=== PATIENT | female | born 1970 | race Caucasian/White ===

== ENCOUNTER 2017-02-08 01:31 | Emergency (ER) | payer OTHER ==
--- NOTE | ~2017-02-08 | ER ---
PATIENT'S NAME: JOSE SAWYER [facility] AGE: 46 Y [address] ROOM: [place] [id number] LOCATION: ED ADMIT DATE: 02/08/2017 ER/Outpatient Report DISCHARGE DATE: FAMILY PHYSICIAN: PHYSICIAN, NO ATTENDING PHYSICIAN: Anuj Mahoney Admission date and time are documented in the medical record. I saw the patient at 0145 hours. CHIEF COMPLAINT: Headache. HISTORY OF PRESENT ILLNESS: This patient is a 46-year-old female who has a history of headaches. She has it quite frequently. 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 Headache started around 1645 hours this afternoon, occipital and radiating into temples bilaterally. Throbbing in nature. She has nausea plus vomiting. No recent coughs, colds, flus, fever, chills, or sweats. No chest pain or abdominal pain. No diarrhea. HOME MEDICATIONS: See attached medication list. ALLERGIES: ULTRAM, SULFA, TORADOL, AND KEFLEX. SOCIAL HISTORY: The patient smokes a half to a pack of cigarettes a day. Nondrinker. SIGNIFICANT PAST MEDICAL HISTORY: Headaches, hiatal hernia, gastroesophageal reflux, and peptic ulcer disease. OPERATIONS: Right adrenalectomy, open reduction and internal fixation of clavicle fracture. REVIEW OF SYSTEMS: All systems reviewed by me are negative with the exception of those discussed in the history of present illness. PHYSICAL EXAMINATION: VITAL SIGNS: Temperature 98.8, pulse 97, respirations 18, blood pressure 122/80, and O2 sat on room air is 97% [place] Coma Scale is 15. HEAD: Normocephalic. EYES: Pupils dilated, but reactive bilaterally. PATIENT'S NAME: JOSE SAWYER [facility] AGE: 46 Y [address] ROOM: [place] [address] LOCATION: ED ADMIT DATE: 02/08/2017 ER/Outpatient Report DISCHARGE DATE: FAMILY PHYSICIAN: PHYSICIAN, NO ATTENDING PHYSICIAN: Anuj Mahoney EARS: Clear TMs bilaterally. NOSE AND THROAT: Clear. The patient smells of tobacco. NECK: Negative. LUNGS: Clear. HEART: Regular. ABDOMEN: Negative. EXTREMITIES: No peripheral edema or cyanosis. NEURO: Intact. IMPRESSION: Headache. PLAN: The patient was given 1 L of normal saline IV in the emergency room. The patient was given Benadryl 50 mg IV in the emergency room followed 10 minutes later by Compazine 10 mg and Nubain 5 mg IV. The patient then dismissed home, rest, fluids, diet as tolerated, continue present home medications and care. Follow up with personal physician as needed. MD BROOKE PHILLIPS/carlyle /[id number] d: 02/08/17228 t: 02/08/17 1809, OUTPATIENT REPORT
== END 2017-02-08 03:30 | disposition disaster alternative care site (69) ==
LOC: GMED 01:31
DX: R51 Headache (principal); K21.9 Gastro-esophageal reflux disease without esophagitis; F17.210 Nicotine dependence, cigarettes, uncomplicated; Z90.89 Acquired absence of other organs; Z79.899 Other long term (current) drug therapy; Z88.1 Allergy status to other antibiotic agents; Z88.2 Allergy status to sulfonamides; Z88.5 Allergy status to narcotic agent; Z88.6 Allergy status to analgesic agent; Z87.11 Personal history of peptic ulcer disease
CPT/HCPCS: J0780; J1200; J2300; J7030

== ENCOUNTER 2017-02-21 18:58 | Emergency (ER) | payer OTHER ==
--- NOTE | ~2017-02-21 | ER ---
PATIENT'S NAME: JOSE SAWYER [facility] AGE: 46 Y [address] ROOM: [place] [address] LOCATION: ED ADMIT DATE: 02/21/2017 ER/Outpatient Report DISCHARGE DATE: 02/21/2017 FAMILY PHYSICIAN: PHYSICIAN, NO ATTENDING PHYSICIAN: Anuj Mahoney Time of Arrival: 1919. Time of Exam: 1927. CHIEF COMPLAINT: Migraine headache. HISTORY OF PRESENT ILLNESS: The patient states she has had a headache for the last week. She did get some Fioricet and has taken that and the severity of the headache has decreased. However, she continues to have extreme nausea. She presents to the ER tonight just wanting a prescription for some Phenergan to help with the nausea. ALLERGIES: ON HER CHART AND WERE REVIEWED BY ME. MEDICATIONS: On her chart and were reviewed by me. PAST MEDICAL HISTORY: Hiatal hernia. Reflux. Migraines. Peptic ulcer disease. PAST SURGERIES: Include right adrenalectomy and clavicle repair. SOCIAL HISTORY: She works as a nurse. Does smoke half pack per day and has for the last 20 years. Denies use of drugs and alcohol. REVIEW OF SYSTEMS: All negative other than those mentioned in the HPI. PHYSICAL EXAMINATION: VITAL SIGNS: She weighed 73.3 kg. Blood pressure was 84/56, pulse is 77, respirations 16, temperature of 98.1, O2 saturation was 98% on room air. GENERAL: She is awake, alert, and oriented x4. SKIN: [place], warm, and dry. RESPIRATIONS: Even and nonlabored. LUNGS: Lung sounds are clear throughout. HEART: Regular rate and rhythm. PATIENT'S NAME: JOSE SAWYER [facility] AGE: 46 Y [address] ROOM: [place] [address] LOCATION: ED ADMIT DATE: 02/21/2017 ER/Outpatient Report DISCHARGE DATE: 02/21/2017 FAMILY PHYSICIAN: PHYSICIAN, NO ATTENDING PHYSICIAN: Anuj Mahoney EXTREMITIES: She moves all extremities strongly and equally. IMPRESSION: Nausea. PLAN: The patient was given a prescription for Phenergan tablets, go home, rest, fluids. Take the medication as directed. Follow up with her primary provider if symptoms persist or worsen in the next 2-3 days. She verbalized understanding. RUTH HAM APRN FOR MD NAVJOT PHILLIPS/modbella /[id number] d: 02/22/17 0038 t: 02/23/17 1813, OUTPATIENT REPORT
== END 2017-02-21 19:39 | disposition disaster alternative care site (69) ==
LOC: GMED 18:58
DX: R11.0 Nausea (principal); F17.210 Nicotine dependence, cigarettes, uncomplicated; K27.9 Peptic ulcer, site unspecified, unspecified as acute or chronic, without hemorrhage or perforation; G43.909 Migraine, unspecified, not intractable, without status migrainosus; Z79.899 Other long term (current) drug therapy; Z88.1 Allergy status to other antibiotic agents; Z88.2 Allergy status to sulfonamides; Z88.5 Allergy status to narcotic agent; Z88.6 Allergy status to analgesic agent; Z88.8 Allergy status to other drugs, medicaments and biological substances; Z98.890 Other specified postprocedural states